=== PATIENT | male | born 1995 | race Caucasian/White ===

== ENCOUNTER 2023-01-22 00:15 | Emergency (ER) | payer OTHER, SELFPAY ==
[2023-01-22 00:59] VITALS: BP 133/89; PULSE 77; RESP 16; TEMP 37.2; O2SAT 97; BMI 25.1
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
== END 2023-01-22 01:29 | disposition home or self-care (01) ==
PROVIDERS: Emergency Provider Emergency Medicine
DX: M54.2 Cervicalgia (principal)
CPT/HCPCS: 99283; 99284